=== PATIENT | female | born 1965 | race Caucasian/White ===

== ENCOUNTER 2022-06-18 11:23 | Day surgery (SDC) | payer MEDICARE, MEDICAID, SELFPAY ==
[2022-06-18 07:08] VITALS: BMI 19.9
[2022-06-18 12:17] VITALS: BP 145/77; PULSE 43; RESP 18; TEMP 36.6; O2SAT 98
[2022-06-18] MEDS: Lactated Ringers 1,000 ML 50 ML IVCONT (12:29)
--- NOTE | 2022-06-18 12:54 | ECG_ITS ---
Test Reason : preop Blood Pressure : / mmHG Vent. Rate : 054 BPM Atrial Rate : 054 BPM P-R Int : 158 ms QRS Dur : 078 ms QT Int : 464 ms P-R-T Axes : 073 068 078 degrees QTc Int : 440 ms Sinus bradycardia with sinus arrhythmia with occasional Premature ventricular complexes Otherwise normal ECG No previous ECGs available Referred By: Yashira Cook Electronically Signed By:AMANDA YOUNGBLOOD MD
--- NOTE | 2022-06-18 13:03 | MHC.SHP ---
Pre-Procedural Eval Section A Date of Service: 06/18/22 The patient is an INPATIENT: No Changes since office visit: No Cold of Flu in the past 2 weeks, No New Medical Problems, No Changes in Medication and No Patient answered all questions The History & Physical has been completed within 30 days and I have reviewed it.: Yes Section B Chief Complaint: Hemorrhage of anus and rectum Allergies: Allergies Allergy/AdvReac Type Severity Reaction Status Date / Time No Known Allergies Allergy Verified 06/17/22 14:38 Plan I have reviewed the history and physical and performed a pertinent physical examination on my patient. No changes have occurred unless specified. Time Spent With Patient Time: Total time managing care of this patient today ____ minutes.
--- NOTE | 2022-06-18 13:38 | HO.ANESPROP2 ---
HPI - Anesthesia Eval Consult details Narrative: screening weightloss PMFSH Past Medical History Medical History (Updated 06/18/22 @ 12:23 by Fatmata Monaco, RN) Back pain Endometriosis Fibromyalgia GERD (gastroesophageal reflux disease) Hx of sinus bradycardia IBS (irritable bowel syndrome) Ovarian cyst Vitamin D deficiency Family History Family history of problems with anesthesia: No Surgical History Surgical History (Updated 06/17/22 @ 14:38 by Ana Larose RN) H/O colonoscopy H/O esophagogastroduodenoscopy H/O hand surgery History of Problems with Anesthesia: No Social History Social History Patient Tobacco Use Status: Former Tobacco user Are you DNR?: No Advance Directives: No Advance Directives Information Provided: Yes Nutrition Risks: No Nutritional Risk Meds Allergies Allergy/AdvReac Type Severity Reaction Status Date / Time No Known Allergies Allergy Verified 06/17/22 14:38 Active Medications: Current Medications Lactated Ringer's (Lr) 1,000 mls @ 50 mls/hr IVCONT .Q20H SHREE Last Admin: 06/18/22 12:29 Dose: 50 mls/hr Home Medications Medication Instructions Recorded Confirmed Last Taken Type Vitamin D (with calcium) 06/17/22 06/17/22 06/16/22 History cyanocobalamin (vitamin B-12) mcg 06/17/22 06/16/22 History 1,000 mcg tablet (Vitamin B-12) meloxicam 15 mg tablet mg PO 06/17/22 06/04/22 History tizanidine 4 mg tablet 4 mg PO Q8H 06/17/22 06/17/22 06/16/22 History Exam Exam Date and Time: June 18, 2022 1338 Height,Weight and Vital Signs: Height 5 ft 4 in Weight 52.617 kg Last Vital Signs Temp 98 F 06/18/22 12:17 Pulse 43 L 06/18/22 12:17 Resp 18 06/18/22 12:17 BP 145/77 H 06/18/22 12:17 Pulse Ox 98 06/18/22 12:17 O2 Del Method Room Air 06/18/22 12:17 Airway Mallampati Class: II TM Dist: >3cm Neck ROM: Full Loose/Missing/Broken Teeth: No Heart: rr Lungs: cta Assessment and Plan Assessment Anesthesia Assessment: Anesthesia Plan Discussed and Chart Reviewed Final Anesthetic Review Family History of Problems with Anesthesia: No History of Problems with Anesthesia: No NPO: Yes ASA Class: II Final Preanesthetic Review: No Changes in Pt Med Stat, Meds/Allgs Chart Reviewed, Consent Obtained/Reviewed and Anes Risks/Benef Reviewed Patient Risk: Low Anesthetic Plan Anesthetic Plan: MAC: Disposition: Standard PACU
--- NOTE | 2022-06-18 13:38 | PM.OP ---
Brief Operative Note Date of Service: 06/18/22 Pre-op diagnosis: rectal bleeding change in bowels Post-op diagnosis: same Surgeon: Blake Osborne Anesthesia: MAC Was an Wound Care Rn used for this Procedure?: No Estimated blood loss (mL): 2 Pathology: other Condition: stable Disposition: PACU
[2022-06-18 13:41] VITALS: BP 111/61; PULSE 61; RESP 20; TEMP 36.4; O2SAT 98
[2022-06-18 13:56] VITALS: BP 123/75; PULSE 70; RESP 19; TEMP 36.5; O2SAT 98
[2022-06-18 14:01] VITALS: BP 117/65; PULSE 70; RESP 17; TEMP 36.5; O2SAT 98
--- NOTE | 2022-06-19 00:25 | OP_ITS ---
DATE OF SERVICE: 06/18/2022 SURGEON: Blake Osborne MD INDICATIONS: Rectal bleeding and change in bowel habits. PREOPERATIVE DIAGNOSIS: POSTOPERATIVE DIAGNOSIS: PROCEDURE PERFORMED: Colonoscopy to the terminal ileum with biopsy. ESTIMATED BLOOD LOSS: COMPLICATIONS: ANESTHESIA: Monitored anesthesia care. ASSISTANTS: SPECIMENS: DESCRIPTION OF PROCEDURE: History and physical performed. The risks and benefits of the procedure were explained to the patient. Informed consent was obtained. The patient was placed in the left lateral decubitus position. A digital rectal exam was performed and was found to be normal. The Olympus pediatric video colonoscope was introduced into the rectum and advanced to the cecum without difficulty. The cecum was identified by transillumination, palpation, and identification of ileocecal valve. Examination was performed. The scope was removed. She tolerated the procedure well and was taken to recovery in stable condition. FINDINGS: The terminal ileum appeared normal. This was examined for approximately 10 cm. Biopsies were obtained from the mucosa. The visualized colonic mucosa was within normal limits. The sigmoid was somewhat tortuous. No polyps were identified. The quality of prep was good. Random sigmoid biopsies were obtained because of the patient's change in bowel habits to evaluate for microscopic or collagenous colitis. Retroflexed examination showed moderate-sized to large-sized internal hemorrhoids, likely the source of the patient's intermittent rectal bleeding. IMPRESSION: Normal colonoscopy. RECOMMENDATION: 1. Follow up the biopsy results. 2. Repeat colonoscopy is recommended in 10 years for average risk individuals. MD JORGE Wilks/REMEDIOSL / [id number]
== END 2022-06-18 14:45 | disposition home or self-care (01) ==
PROVIDERS: PCP Registered Nurse; Visit Provider Internal Medicine Gastroenterology
PROC: 0DJD8ZZ Inspection of Lower Intestinal Tract, Via Natural or Artificial Opening Endoscopic (ICD-10-PCS; CPT 45378; principal; 2022-06-18 13:00)
DX: K62.5 Hemorrhage of anus and rectum (principal); R19.4 Change in bowel habit; K64.8 Other hemorrhoids; K58.9 Irritable bowel syndrome, unspecified; K21.9 Gastro-esophageal reflux disease without esophagitis; M79.7 Fibromyalgia; E55.9 Vitamin D deficiency, unspecified; Z79.899 Other long term (current) drug therapy; Z87.891 Personal history of nicotine dependence
CPT/HCPCS: 45380; 88305; 93005